=== PATIENT | male | born 1965 | race Caucasian/White ===

== ENCOUNTER → 2017-12-25 | Outpatient (CLI) | payer OTHER ==
--- NOTE | 2017-12-25 11:30 | KCIC ---
CHEST PA LATERAL History: Cough, chronic shortness of air, generalized chest pain Comparison: None. Findings: 2 views of the chest are submitted. There is mild retrocardiac opacity. There is no dependent pleural fluid or pneumothorax. Heart size is within normal limits. Impression: 1. There is mild retrocardiac opacity, could be due to infiltrate, no previous exams to evaluate for change. Imaging follow-up after treatment is advised, alternatively could be evaluated by CT to evaluate if true finding. Electronically signed by: Sumit Watkins MD (12/25/2017 11:27 AM) [id number]
== END | disposition home or self-care (01) ==
LOC: KCIC 10:35
PROVIDERS: ATTEND Family Medicine
DX: R91.8 Other nonspecific abnormal finding of lung field (principal); R06.02 Shortness of breath; R05 Cough; R07.9 Chest pain, unspecified
CPT/HCPCS: 71046